=== PATIENT | male | born 1990 | race Caucasian/White ===

== ENCOUNTER 2016-11-25 14:44 | Inpatient (IN) | payer MEDICAID, OTHER ==
--- NOTE | 2016-11-25 15:46 | ED ---
General Adult HPI - General Chief complaint: Psychiatric Symptoms Stated complaint: Mental Health Time Seen by Provider: 11/25/16 15:10 Source: patient, RN notes reviewed Mode of arrival: ambulatory Limitations: no limitations - History of Present Illness Initial comments: Patient is a 26-year-old male who presents emergency room today with chief complaint psychiatric evaluation. Denies any specific suicidal ideation. Denies any homicidal thoughts or plans. Denies any visual or auditory hallucinations. He does admit that he believes he suffers from depression. He states that he has never been formally diagnosed. He states he does have a history of diabetes. His fiance at bedside states that a few days ago he talked about just leaving the house without his insulin because he did not care. Patient denies any other physical complaints. States that they have been trying follow-up with a psychiatrist. States that he had an appointment but they were told that is not excessive insurance. Since he called a few other places but received a phone call back. Patient denies any recent fever, chills, shortness of breath, chest pain, back pain, abdominal pain, nausea or vomiting, numbness or tingling, dysuria or hematuria, constipation or diarrhea, headaches or visual changes, or any other complaints. - Related Data Home Medications Medication Instructions Recorded Confirmed Insulin Aspart [NovoLOG Flexpen] See Protocol SQ 11/25/16 Insulin Glargine,Hum.rec.anlog 16 - 20 unit SQ HS 11/25/16 11/25/16 [Lantus Solostar] Allergies Allergy/AdvReac Type Severity Reaction Status Date / Time gluten AdvReac Nausea & Verified 11/25/16 15:42 Vomiting & Diarrhea Review of Systems ROS Statement: Those systems with pertinent positive or pertinent negative responses have been documented in the HPI. ROS Other: All systems not noted in ROS Statement are negative. Past Medical History Past Medical History: Diabetes Mellitus Additional Past Medical History / Comment(s): neuropathy History of Any Multi-Drug Resistant Organisms: None Reported Past Surgical History: No Surgical Hx Reported Past Psychological History: Anxiety, Depression Smoking Status: Current every day smoker Past Alcohol Use History: Rare Past Drug Use History: Marijuana General Exam - General Exam Comments Initial Comments: General: The patient is awake and alert, in no distress, and does not appear acutely ill. Eye: Pupils are equal, round and reactive to light, extra-ocular movements are intact. No nystagmus. There is normal conjunctiva bilaterally. No signs of icterus. Ears, nose, mouth and throat: There are moist mucous membranes and no oral lesions. Neck: The neck is supple, there is no tenderness or JVD. Cardiovascular: There is a regular rate and rhythm. No murmur, rub or gallop is appreciated. Respiratory: Lungs are clear to auscultation, respirations are non-labored, breath sounds are equal. No wheezes, stridor, rales, or rhonchi. Gastrointestinal: Soft, non-distended, non-tender abdomen without masses or organomegaly noted. There is no rebound or guarding present. No CVA tenderness. Bowel sounds are unremarkable. Musculoskeletal: Normal ROM, no tenderness. Strength 5/5. Sensation intact. Pulses equal bilaterally 2+. Neurological: A&O x 3. CN II-XII intact, There are no obvious motor or sensory deficits. Coordination appears grossly intact. Speech is normal. Skin: Skin is warm and dry and no rashes or lesions are noted. Psychiatric: Cooperative, appropriate mood & affect, normal judgment. Limitations: no limitations Course Vital Signs 11/25/16 14:46 Temperature 97.8 F Pulse Rate 101 H Respiratory 18 Rate Blood Pressure 117/69 O2 Sat by Pulse 98 Oximetry Medical Decision Making - Medical Decision Making Patient has been seen here in the emergency room by mental health. They recommended admission. Patient willing to sign himself in. - Lab Data Lab Results 11/25/16 11/25/16 Range/Units 16:24 17:12 POC Glucose (mg/dL) 271 H (75-99) mg/dL POC Glu Skein Winder ID Marbin Rinaldi Urine Opiates Screen Not Detected (NotDetected) Ur Oxycodone Screen Not Detected (NotDetected) Urine Methadone Screen Not Detected (NotDetected) Ur Propoxyphene Screen Not Detected (NotDetected) Ur Barbiturates Screen Not Detected (NotDetected) U Tricyclic Antidepress Not Detected (NotDetected) Ur Phencyclidine Scrn Not Detected (NotDetected) Ur Amphetamines Screen Not Detected (NotDetected) U Methamphetamines Scrn Not Detected (NotDetected) U Benzodiazepines Scrn Not Detected (NotDetected) Urine Cocaine Screen Not Detected (NotDetected) U Marijuana (THC) Screen Detected H (NotDetected) Disposition Clinical Impression: Depression, Suicidal ideation Disposition: TRANSFER TO PSYCH HOSP/UNIT
[2016-11-25 16:27] LABS: Glucose,Whole Blood 271 mg/dL (75-99)
[2016-11-25 20:12] LABS: Glucose,Whole Blood 292 mg/dL (75-99)
[2016-11-25] MEDS ORDERED: MAGNESIUM HYDROXIDE 2,400 MG/10 ML CUP PO PRN (20:25)
[2016-11-25] MEDS ORDERED: ACETAMINOPHEN TAB 325 MG TAB PO PRN (20:25)
[2016-11-25] MEDS ORDERED: MAG HYDROX/AL HYDROX/SIMETH 30 ML CUP PO PRN (20:25)
[2016-11-25] MEDS: INSULIN LISPRO (humaLOG) 300 UNIT/3 ML VIAL SQ SCH (21:24)
[2016-11-25] MEDS: INSULIN GLARGINE 100 UNIT/ML 10 ML VIAL SQ SCH (21:59)
--- NOTE | 2016-11-25 23:58 | P.MDCNMH ---
History of Present Illness H&P Date: 11/25/16 Chief Complaint: medical managment 26 year old male with PMHx of DM type I, Celiac disease and no psychiatric history patient presented voluntarily , due to feeling overwhelmed. He denies any suicidal, homicidal ideation. however he is asking for psych evaluation, as he feels overwhelming anxiety, hoplessness and helpess. He is worried of future complication of his current medical issues. He feels depressed. otherwise denies any active medical complaints. He reports that few days ago he attempted to leave the house without insulin as he does not care any more. He reports that celiac disease is a recent diagnosis , and since he stopped eating gluten , he feels more energetic and is having no more diarrheas or bloating. Review of Systems Constitutional: Patient reports no fever, no chills, no night sweating, no significant weight changes Eyes: Patient reports no visual changes, no eye pain ENT: Patient reports no ear pain, no rhinorrhea, no sore throat Cardiovascular: Patient reports no chest pain, no exertional dyspnea, no peripheral leg edema, no orthopnea, no paroxysmal nocturnal dyspnea Respiratory:Patient reports no cough, no wheezing, no shortness of breath Gastrointestinal: Patient reports no diarrhea, no constipation, no nausea no vomiting, no abdominal pain Genitourinary: Patient reports no dysuria, no hematuria, no changes in urinary habits, no genital lesions Musculoskeletal: Patient reports no muscle pain, no joint pain Endocrine: Patient reports no heat intolerance, no cold intolerance, no excessive thirst, no polyuria Neurological: Patient reports no focal neurologic deficits, no weakness, no numbness, no tingling Hem/Lymphatic: Patient reports no bleeding tendency, no bruising, no swollen lymph glands Allergic/Immun: Patient reports no recent allergic reactions Skin: Patient reports no rashes, no pruritis, no ulcers Past Medical History Past Medical History: Diabetes Mellitus Additional Past Medical History / Comment(s): neuropathy, celiac disease History of Any Multi-Drug Resistant Organisms: None Reported Past Surgical History: No Surgical Hx Reported Past Psychological History: Anxiety, Depression Smoking Status: Current every day smoker Past Alcohol Use History: Rare Past Drug Use History: Marijuana Additional History: Thyroid disease and breast cancer runs in his family Medications and Allergies Home Medications and Allergies Comment(s): reviewed Home Medications Medication Instructions Recorded Confirmed Type Insulin Aspart [NovoLOG Flexpen] See Protocol SQ ACHS 11/25/16 11/25/16 History Insulin Glargine,Hum.rec.anlog 16 - 20 unit SQ HS 11/25/16 11/25/16 History [Lantus Solostar] Allergies Allergy/AdvReac Type Severity Reaction Status Date / Time gluten AdvReac Nausea & Verified 11/25/16 15:42 Vomiting & Diarrhea Physical Exam Vitals: Vital Signs Temp Pulse Pulse Resp BP BP Pulse Ox 11/25/16 19:43 98.0 F 88 18 122/80 98 11/25/16 14:46 97.8 F 101 H 18 117/69 98 Intake and Output 11/25/16 11/25/16 11/26/16 14:59 22:59 06:59 Other: Weight 58.967 kg 59.8 kg Patient Weight 11/26/16 06:59 Weight 59.8 kg Constitutional: No acute distress, conversant, pleasant Eyes: Anicteric sclerae, moist conjunctiva, no lid-lag Pupils equal round reactive to light ENMT: NC/AT Oropharynx clear, no erythema, exudates, patient has no frontal lower teeth Neck: Supple, FROM, no masses, or JVD No carotid bruits No thyromegaly Lungs: Clear to auscultation Clear to percussion Normal respiratory effort, no accessory muscle use Cardiovascular: Heart regular in rate and rhythm, No murmurs, gallops, or rubs No peripheral edema Abdominal: Soft Nontender, no guarding, rebound or rigidity Abdomen moving with respiration Normoactive bowel sounds No hepatomegaly, No splenomegaly No palpable mass No abdominal wall hernia noted Skin: Normal temperature, tone, texture, turgor No induration No subcutaneous nodules No rash, lesions No ulcers Extremities: No digital cyanosis No clubbing Pedal pulses intact and symmetrical Radial pulses intact and symmetrical No calf tenderness Psychiatric: Alert and oriented to person, place and time Appropriate affect fair judgement Neuro Muscles Strength 5/5 in all 4 extremities Sensation to light touch grossly present throughout No focal sensory deficits Lymphatics: no palpable cervical or supraclavicular , or inguinal lymph nodes Cranial Nerve Examination - Cranial Nerves Cranial Nerve II- Optic: Intact Cranial Nerve III- Oculomotor: Intact Cranial Nerve IV- Trochlear: Intact Cranial Nerve V- Trigeminal: Intact Cranial Nerve - Abducens: Intact Cranial Nerve VII- Facial: Intact Cranial Nerve VIII- Auditory: Intact Cranial Nerve IX- Glossopharyngeal: Intact Cranial Nerve X- Vagus: Intact Cranial Nerve XI- Accessory: Intact Cranial Nerve XII- Hypoglossal: Intact Results Labs: Abnormal Lab Results - Last 24 Hours (Table) 11/25/16 11/25/16 11/25/16 Range/Units 16:24 17:12 20:10 POC Glucose (mg/dL) 271 H 292 H (75-99) mg/dL U Marijuana (THC) Screen Detected H (NotDetected) Assessment and Plan (1) Diabetes mellitus Narrative/Plan: continue with home insulin dose of lantus insulin sliding scale check A1C Status: Acute (2) Celiac disease Narrative/Plan: gluten free diet Status: Acute (3) DVT prophylaxis Narrative/Plan: low risk and ambulatory Status: Acute (4) Depression Narrative/Plan: per psych Status: Acute Plan: Thank you for allowing us to participate in the care of this patient. We will follow peripherally. Do not hesitate to contact us with questions. Someone can be reached from the [facility] hospitalist group at all hours of the day at [phone].
[2016-11-26 03:57] LABS: Glucose,Whole Blood 161 mg/dL (75-99)
[2016-11-26 06:40] LABS: Glucose,Whole Blood 140 mg/dL (75-99)
[2016-11-26] MEDS: INSULIN LISPRO (humaLOG) 300 UNIT/3 ML VIAL SQ SCH ×5 (09:08→20:35)
[2016-11-26] MEDS: NICOTINE 14MG/24HR PATCH TRANSDERM SCH (09:10)
[2016-11-26 09:29] LABS: Basophils % (A) 1 %; CH 31.8; CHCM 34.3; Eosinophils # (A) 0.1 k/uL (0-0.7); Eosinophils % (A) 2 %; HCT 48.1 % (39.0-53.0); HDW 2.46; HGB 15.7 gm/dL (13.0-17.5); Luc # (Auto) 0.19; Luc % (Auto) 4; Lymphocytes # (A) 1.4 k/uL (1.0-4.8); Lymphocytes % (A) 29 %; MCH 30.5 pg (25.0-35.0); MCHC 32.8 g/dL (31.0-37.0); Mean Platelet Volume 6.9; Monocytes # (A) 0.5 k/uL (0-1.0); Monocytes % (A) 10 %; Neutrophils # (A) 2.6 k/uL (1.3-7.7); Neutrophils % (A) 54 %; RBC 5.17 m/uL (4.30-5.90); RDW 12.1 % (11.5-15.5); WBC 4.9 k/uL (3.8-10.6); WBC (Perox) 5.21
[2016-11-26 10:00] LABS: ALT 45 U/L (21-72); AST 30 U/L (17-59); Alkaline Phosphatase 73 U/L (38-126); Anion Gap 15 mmol/L; Blood Urea Nitrogen 15 mg/dL (9-20); Calcium 9.8 mg/dL (8.4-10.2); Carbon Dioxide 26 mmol/L (22-30); Chloride 103 mmol/L (98-107); Glucose 127 mg/dL (74-99); Non-African American GFR(MDRD) >60 (>60 ml/min/1.73 sqM); Potassium 4.7 mmol/L (3.5-5.1); Sodium 144 mmol/L (137-145); Total Bilirubin 1.4 mg/dL (0.2-1.3); Total Protein 7.7 g/dL (6.3-8.2)
[2016-11-26] MEDS: ESCITALOPRAM 10 MG TAB PO SCH (10:08)
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
[2016-11-26 12:33] LABS: Glucose,Whole Blood 248 mg/dL (75-99)
[2016-11-26 12:42] LABS: Hemoglobin A1C 8.5 % (4.2-6.1)
--- NOTE | 2016-11-26 13:01 | P.PN ---
Subjective Progress Note Date: 11/26/16 Principal diagnosis: depression Patient is a 26-year-old male for history of diabetes mellitus type 1 , neuropathy, and celiac disease who is seen in the mental health unit. He is being followed for his type 1 diabetes and celiac disease. Patient seen and examined at bedside. He is not having any unusual chest pain, shortness breath, nausea, vomiting, or diarrhea. We discussed his blood sugars. He states his last hemoglobin A1c was 9 typically runs in that level. He has tried getting the insulin pump in the past but this was cost prohibitive as the start up would be $500-$600. We discussed that his kidney function, liver function, and hemoglobin were all within normal limits. Objective - Vital Signs Vital signs: Vital Signs Temp 97.3 F L 11/26/16 06:20 Pulse 80 11/26/16 06:20 Resp 14 11/26/16 06:20 BP 116/65 11/26/16 06:20 Pulse Ox 98 11/25/16 19:43 Intake & Output 11/25/16 11/26/16 11/26/16 18:59 06:59 18:59 Weight 58.967 kg 59.8 kg - Exam General: non toxic, no distress, appears at stated age Derm: no rashes, no lesions Head: atraumatic, normocephalic, symmetric Eyes: EOMI, no lid lag, anicteric sclera Cardiovascular: S1S2 reg, no murmur, positive posterior tibial pulse bilateral, Lungs: CTA bilateral, no rhonchi, no rales , no accessory muscle use Neuro: CN II-XI grossly intact, no focal neuro deficits Psych: Alert, oriented, flat affect - Labs CBC & Chem 7: 11/26/16 09:11 11/26/16 09:11 Labs: Abnormal Lab Results - Last 24 Hours (Table) 11/25/16 11/25/16 11/25/16 Range/Units 16:24 17:12 20:10 Glucose (74-99) mg/dL POC Glucose (mg/dL) 271 H 292 H (75-99) mg/dL Hemoglobin A1c (4.2-6.1) % Total Bilirubin (0.2-1.3) mg/dL U Marijuana (THC) Screen Detected H (NotDetected) 11/26/16 11/26/16 11/26/16 Range/Units 03:55 06:36 09:11 Glucose (74-99) mg/dL POC Glucose (mg/dL) 161 H 140 H (75-99) mg/dL Hemoglobin A1c 8.5 H (4.2-6.1) % Total Bilirubin (0.2-1.3) mg/dL U Marijuana (THC) Screen (NotDetected) 11/26/16 11/26/16 Range/Units 09:11 12:28 Glucose 127 H (74-99) mg/dL POC Glucose (mg/dL) 248 H (75-99) mg/dL Hemoglobin A1c (4.2-6.1) % Total Bilirubin 1.4 H (0.2-1.3) mg/dL U Marijuana (THC) Screen (NotDetected) Assessment and Plan Plan: Type 1 diabetes mellitus, suboptimally controlled -Afternoon and p.m. blood sugars appear to be slightly elevated, a.m. blood sugars are in good range -Await hemoglobin A1c -Follow blood sugars Celiac disease -Dietary consultation -folic acid and ferritin level pending Major depressive disorder -Your psych management I will remotely continue to check patient's lab results and blood sugar levels. Should testing come back abnormal we'll plan on reevaluating the patient. Thank you for allowing us to participate in the care of this patient. We will follow peripherally. Do not hesitate to contact us with questions. Someone can be reached from the [facility] hospitalist group at all hours of the day at [phone].
[2016-11-26 14:15] VITALS: BMI 17.9
[2016-11-26 15:13] LABS: Iron Saturation 25.46 (15.00-50.00)
[2016-11-26 17:28] LABS: Glucose,Whole Blood 288 mg/dL (75-99)
[2016-11-26] MEDS: INSULIN GLARGINE 100 UNIT/ML 10 ML VIAL SQ SCH (20:36)
[2016-11-26 20:43] LABS: Glucose,Whole Blood 162 mg/dL (75-99)
[2016-11-26 22:47] LABS: Glucose,Whole Blood 58 mg/dL (75-99)
[2016-11-26 23:03] LABS: Glucose,Whole Blood 66 mg/dL (75-99)
[2016-11-26 23:33] LABS: Glucose,Whole Blood 204 mg/dL (75-99)
[2016-11-27 03:31] LABS: Glucose,Whole Blood 171 mg/dL (75-99)
[2016-11-27 06:14] LABS: Glucose,Whole Blood 120 mg/dL (75-99)
[2016-11-27] MEDS ORDERED: INSULIN LISPRO (humaLOG) 300 UNIT/3 ML VIAL SQ SCH (07:30)
[2016-11-27] MEDS: INSULIN LISPRO (humaLOG) 300 UNIT/3 ML VIAL SQ SCH ×7 (07:57→21:45)
[2016-11-27] MEDS: ESCITALOPRAM 10 MG TAB PO SCH (08:13)
[2016-11-27] MEDS: NICOTINE 14MG/24HR PATCH TRANSDERM SCH (08:14)
--- NOTE | 2016-11-27 11:28 | P.PN ---
Progress Note - Text Interval history: The patient is found in the dining room he follows me to an interview room. He reports he had some difficulty sleeping last night he subsequently feels tired. He reports she's been participating in groups he's been eating. Mood continues to be depressed. He does have some hopeless thoughts but ultimately feels safe here in the hospital. He states that if he wasn't in the hospital he would continue to have plans of harming himself with his insulin. Mental status exam: The patient is a tall thin male appearing his stated age. He is dressed in his own clothing. Eye contact is appropriate speech is fluent spontaneous nonpressured. He endorses a continued depressed mood with hopelessness thinking. He reports no homicidal ideation intent or plan. He endorses no auditory or visual hallucinations or specific delusions. He does not appear hypomanic or manic. Insight and judgment limited. He remains oriented to person place and date. He demonstrates no verbal or physical aggressiveness. Plan: The patient will continue on Lexapro we will add melatonin at bedtime as he has successfully used that on an outpatient basis for sleep. He is encouraged to continue participating in the milieu. Social work is in the process of trying to arrange a support meeting. We will continue to monitor him for safety.
--- NOTE | 2016-11-27 11:57 | P.PN ---
Subjective Progress Note Date: 11/27/16 Principal diagnosis: depression Patient is a 26-year-old male for history of diabetes mellitus type 1 , neuropathy, and celiac disease who is seen in the mental health unit. He is being followed for his type 1 diabetes and celiac disease. Patient seen and examined at bedside. His blood sugar dropped to the 60s last evening. He states that is because he has been walking and his walks 10 times when he does typically in the day at work. He was symptomatic. He has never tried taking his Lantus during the day and is willing to try. He states he knows this is due to increased activity and he has not been eating as many carbs as he normally does at home. We'll continue to monitor blood sugars closely. He denies any chest pain, shortness of breath, lightheadedness, dizziness, or diaphoresis. He is very aware of what symptoms to look for for both hyper and hypoglycemia. He is a very brittle type I diabetic. Objective - Vital Signs Vital signs: Vital Signs Temp 98.8 F 11/27/16 06:12 Pulse 98 11/27/16 06:12 Resp 15 11/27/16 06:12 BP 107/66 11/27/16 06:12 Pulse Ox 98 11/25/16 19:43 Intake & Output 11/26/16 11/27/16 11/27/16 18:59 06:59 18:59 Weight 59.8 kg - Exam General: non toxic, no distress, appears at stated age Derm: no rashes, no lesions Head: atraumatic, normocephalic, symmetric Eyes: EOMI, no lid lag, anicteric sclera Cardiovascular: S1S2 reg, no murmur, positive posterior tibial pulse bilateral, Lungs: CTA bilateral, no rhonchi, no rales , no accessory muscle use Neuro: CN II-XI grossly intact, no focal neuro deficits Psych: Alert, oriented, flat affect - Labs CBC & Chem 7: 11/26/16 09:11 11/26/16 09:11 Labs: Abnormal Lab Results - Last 24 Hours (Table) 11/26/16 11/26/16 11/26/16 Range/Units 09:11 12:28 17:27 POC Glucose (mg/dL) 248 H 288 H (75-99) mg/dL Hemoglobin A1c 8.5 H (4.2-6.1) % 11/26/16 11/26/16 11/26/16 Range/Units 20:30 22:45 23:02 POC Glucose (mg/dL) 162 H 58 L 66 L (75-99) mg/dL Hemoglobin A1c (4.2-6.1) % 11/26/16 11/27/16 11/27/16 Range/Units 23:22 03:27 06:12 POC Glucose (mg/dL) 204 H 171 H 120 H (75-99) mg/dL Hemoglobin A1c (4.2-6.1) % Assessment and Plan Plan: Type 1 diabetes mellitus, suboptimally controlled -Transition Lantus to a.m. dosing and decrease from 16 units to 15 units, fixed doses of 3 units of Humalog was added with each meal in addition to sliding scale -Monitor blood sugars closely -Hemoglobin A1c 8.5 -Liberalize his diet so patient can consume the same amount of carbs he was using at home, this was a better approximation of how much insulin he truly needs. Celiac disease -Dietary recommendations appreciated -folic acid and ferritin level within normal Major depressive disorder -Your psych management Plan on reevaluating the patient's blood sugars in the morning, if there is a large variance or anything concerning will reevaluate the patient tomorrow. Thank you for allowing us to participate in the care of this patient. We will follow peripherally. Do not hesitate to contact us with questions. Someone can be reached from the [facility] hospitalist group at all hours of the day at [phone].
[2016-11-27 12:23] LABS: Glucose,Whole Blood 129 mg/dL (75-99)
[2016-11-27] MEDS: INSULIN GLARGINE 100 UNIT/ML 10 ML VIAL SQ SCH (12:59)
[2016-11-27 14:46] LABS: Glucose,Whole Blood 314 mg/dL (75-99)
[2016-11-27] MEDS ORDERED: INSULIN LISPRO (humaLOG) 300 UNIT/3 ML VIAL SQ ONE (14:49)
[2016-11-27 17:19] LABS: Glucose,Whole Blood 225 mg/dL (75-99)
[2016-11-27 20:05] LABS: Glucose,Whole Blood 101 mg/dL (75-99)
[2016-11-27] MEDS: MELATONIN 3 MG TABLET PO SCH (22:41)
[2016-11-27 22:46] LABS: Glucose,Whole Blood 86 mg/dL (75-99)
[2016-11-28 03:10] LABS: Glucose,Whole Blood 100 mg/dL (75-99)
[2016-11-28 06:41] LABS: Glucose,Whole Blood 108 mg/dL (75-99)
[2016-11-28 08:08] LABS: Glucose,Whole Blood 89 mg/dL (75-99)
[2016-11-28] MEDS: INSULIN LISPRO (humaLOG) 300 UNIT/3 ML VIAL SQ SCH ×7 (08:58→20:48)
[2016-11-28] MEDS: INSULIN GLARGINE 100 UNIT/ML 10 ML VIAL SQ SCH (08:59)
[2016-11-28] MEDS: ESCITALOPRAM 10 MG TAB PO SCH (08:59)
[2016-11-28] MEDS: NICOTINE 14MG/24HR PATCH TRANSDERM SCH ×2 (09:00→09:02)
--- NOTE | 2016-11-28 10:56 | P.PN ---
Progress Note - Text Interval history: The patient is found in his room he follows me to an interview room. He is reporting no side effects from the Lexapro. He reports having some disturbed sleep last evening. He has been attending groups. He reports that his mood is just starting to stabilize. Social work has been trying to coordinate a support meeting involving his . He states once he is discharged she is hoping to participate in individual counseling or group activity. We discussed partial hospitalization as an option. He does hope to gain employment again but feels his diabetes has been an obstacle. He continues to describe his marriage as being very supportive. Mental status exam: The patient is a thin male he is dressed in his own clothing hygiene grooming adequate. Speech is fluent and spontaneous nonpressured. He is reporting his mood is just starting to improve. He is reporting no homicidal ideation intent or plan. Affect is constricted. He is reporting no auditory or visual hallucinations or specific delusions. He does not appear hypomanic or manic. Insight and judgment meaning to improve. He demonstrates no verbal or physical aggressiveness. Plan: The patient will be continued on his current psychotropic medications. We will monitor him for safety. Social work is attempting to arrange a support meeting. If he demonstrates sufficient improvement over the weekend we will consider discharge Thursday. Internal medicine is managing treatment regarding his insulin area
--- NOTE | 2016-11-28 12:21 | P.PN ---
Subjective Progress Note Date: 11/28/16 Principal diagnosis: depression Patient is a 26-year-old male for history of diabetes mellitus type 1 , neuropathy, and celiac disease who is seen in the mental health unit. He is being followed for his type 1 diabetes and celiac disease. On 11/27 he moved his Lantus dose in the morning which seemed to help. He did have some elevated blood sugars as his lunchtime fixed dose of insulin was held. Patient seen and examined at bedside. Patient is feeling well today, he requests an increase in his fixed dose Humalog if he is eating more. He states that he is eating closely at home. We have discussed there is not a carb counting insulin sliding scale available in the mental health unit. He understands that should he want a different dose of insulin he should let the nurse know if they could call us 24 hours a day and he is going dose can be changed and monitored. We also discussed whether or not we should move his Lantus back to nighttime. We both agreed that since there is no large nighttime snack and he has a larger gap between dinner and breakfast and he does not home that we should not his Lantus back to nighttime. I reassured him that I will continue to follow his blood sugars daily and we will discuss his insulin regimen together and make further changes. Objective - Vital Signs Vital signs: Vital Signs Temp 97.8 F 11/28/16 06:13 Pulse 79 11/28/16 06:13 Resp 16 11/28/16 06:13 BP 98/56 11/28/16 06:13 Pulse Ox 98 11/25/16 19:43 - Exam General: non toxic, no distress, appears at stated age Derm: no rashes, no lesions Head: atraumatic, normocephalic, symmetric Eyes: EOMI, no lid lag, anicteric sclera Cardiovascular: S1S2 reg, no murmur, positive posterior tibial pulse bilateral, Lungs: CTA bilateral, no rhonchi, no rales , no accessory muscle use Neuro: CN II-XI grossly intact, no focal neuro deficits Psych: Alert, oriented, flat affect - Labs CBC & Chem 7: 11/26/16 09:11 11/26/16 09:11 Labs: Abnormal Lab Results - Last 24 Hours (Table) 11/27/16 11/27/16 11/27/16 Range/Units 12:21 14:42 17:07 POC Glucose (mg/dL) 129 H 314 H 225 H (75-99) mg/dL 11/27/16 11/28/16 11/28/16 Range/Units 20:03 03:07 06:27 POC Glucose (mg/dL) 101 H 100 H 108 H (75-99) mg/dL Assessment and Plan Plan: Type 1 diabetes mellitus, suboptimally controlled -10 units Lantus 15 units in the morning, continue with Humalog sliding scale and increase Humalog to 5 units with all meals. -Monitor blood sugars closely -Hemoglobin A1c 8.5 Celiac disease -Dietary recommendations appreciated -folic acid and ferritin level within normal Major depressive disorder -Your psych management Plan on reevaluating the patient daily and making adjustments to his insulin regimen. Thank you for allowing us to participate in the care of this patient. We will follow peripherally. Do not hesitate to contact us with questions. Someone can be reached from the [facility] hospitalist group at all hours of the day at [phone].
[2016-11-28 12:57] LABS: Glucose,Whole Blood 269 mg/dL (75-99)
[2016-11-28 16:46] LABS: Glucose,Whole Blood 55 mg/dL (75-99)
[2016-11-28 17:05] LABS: Glucose,Whole Blood 57 mg/dL (75-99)
[2016-11-28 17:29] LABS: Glucose,Whole Blood 99 mg/dL (75-99)
[2016-11-28] MEDS ORDERED: INSULIN LISPRO (humaLOG) 300 UNIT/3 ML VIAL SQ ONE (18:13)
[2016-11-28 20:22] LABS: Glucose,Whole Blood 132 mg/dL (75-99)
[2016-11-28] MEDS: MELATONIN 3 MG TABLET PO SCH (22:06)
[2016-11-28 22:24] LABS: Glucose,Whole Blood 160 mg/dL (75-99)
[2016-11-29 06:50] LABS: Glucose,Whole Blood 284 mg/dL (75-99)
[2016-11-29] MEDS: ESCITALOPRAM 10 MG TAB PO SCH (08:30)
[2016-11-29] MEDS: NICOTINE 14MG/24HR PATCH TRANSDERM SCH ×2 (08:30→15:33)
[2016-11-29] MEDS: INSULIN GLARGINE 100 UNIT/ML 10 ML VIAL SQ SCH (08:30)
[2016-11-29] MEDS: INSULIN LISPRO (humaLOG) 300 UNIT/3 ML VIAL SQ SCH ×8 (08:32→22:07)
[2016-11-29 12:34] LABS: Glucose,Whole Blood 289 mg/dL (75-99)
--- NOTE | 2016-11-29 14:14 | P.PN ---
Subjective Progress Note Date: 11/29/16 Principal diagnosis: depression Patient is a 26-year-old male for history of diabetes mellitus type 1 , neuropathy, and celiac disease who is seen in the mental health unit. He is being followed for his type 1 diabetes and celiac disease. currently struggeling with both hypo and hyperglycemia Patient seen and examined at bedside. Feeling very tired today. States he is not sleeping well. States that he is not pacing of months as he has other things to consume his time. We discussed his insulin dose at [place] and he would like to be flipped back to nighttime Lantus. We will do this tomorrow in anticipation for discharge home on Thursday by psychiatry. We have discussed that we'll give him a small dose of Lantus in the morning and then the majority of his dose at night. He is in agreement. We have been working together on how much insulin he wants to take with each meal based on carb counting and have adjusted appropriately. His blood sugar was slightly high again today at lunch and he believes he did not take enough insulin this morning. Objective - Vital Signs Vital signs: Vital Signs Temp 98.2 F 11/29/16 06:37 Pulse 74 11/29/16 06:37 Resp 18 11/29/16 06:37 BP 116/62 11/29/16 06:37 Pulse Ox 98 11/25/16 19:43 - Exam General: non toxic, no distress, appears at stated age Derm: no rashes, no lesions Head: atraumatic, normocephalic, symmetric Eyes: EOMI, no lid lag, anicteric sclera Cardiovascular: S1S2 reg, no murmur, positive posterior tibial pulse bilateral, Lungs: CTA bilateral, no rhonchi, no rales , no accessory muscle use Neuro: CN II-XI grossly intact, no focal neuro deficits Psych: Alert, oriented, appropriate affect - Labs CBC & Chem 7: 11/26/16 09:11 11/26/16 09:11 Labs: Abnormal Lab Results - Last 24 Hours (Table) 11/28/16 11/28/16 11/28/16 Range/Units 16:44 17:04 20:20 POC Glucose (mg/dL) 55 L 57 L 132 H (75-99) mg/dL 11/28/16 11/29/16 11/29/16 Range/Units 22:22 06:48 12:31 POC Glucose (mg/dL) 160 H 284 H 289 H (75-99) mg/dL Assessment and Plan Plan: Type 1 diabetes mellitus, suboptimally controlled -I'll change him back to nighttime insulin starting tomorrow as he anticipates going home on Thursday. Tomorrow I will gve him Lantus 4 units in the morning followed by 12 units at night for a total of 16 units. He is in agreement, will continue to work with patient 2 adjust his insulin with meal secondary to carb counting. -Monitor blood sugars closely -Hemoglobin A1c 8.5 - working with endocrinology as outpatient towards insulin pump Celiac disease -Dietary recommendations appreciated -folic acid and ferritin level within normal Major depressive disorder -Your psych management Plan on reevaluating the patient daily and making adjustments to his insulin regimen. Thank you for allowing us to participate in the care of this patient. We will follow peripherally. Do not hesitate to contact us with questions. Someone can be reached from the [facility] hospitalist group at all hours of the day at [phone].
--- NOTE | 2016-11-29 15:50 | P.PN ---
Progress Note - Text Progress Note Date: 11/29/16 Interval history: Patient is seen in cross coverage today for Dr. Sharif. He seems to be tolerating the Lexapro well. His mood overall seems to be improved. He reports that he has resolved any suicidal ideations. He had a family meeting today. He does state that his sleep has been kind of interrupted. Mental status exam: He is alert and cooperative with the interview. His speech is fluent, not rapid or pressured. His mood overall seems to be improved. He relates that he is resolved any suicidal ideations. He denies any thoughts of harm to others. No evidence of psychosis or agitation. Plan: Patient will be maintained on current psychotropic medication regimen. We will continue to monitor for any medication side effects and for his ongoing response. We'll continue to cover this patient for Dr. Sharif through the weekend.
[2016-11-29 16:43] LABS: Glucose,Whole Blood 61 mg/dL (75-99)
[2016-11-29 16:43] LABS: Glucose,Whole Blood 51 mg/dL (75-99)
[2016-11-29 17:30] LABS: Appearance,Urine Clear (Clear); Bilirubin,Urine Negative (Negative); Glucose,Urine (UA) 3+ (Negative); Ketones,Urine Negative (Negative); Leukocyte Esterase,Urine Negative (Negative); Nitrite,Urine Negative (Negative); Protein,Urine Negative (Negative); Specific Gravity,Urine 1.008 (1.001-1.035); UA Billing (MACRO vs. MICRO) CHEM; Urobilinogen,Urine <2.0 mg/dL (<2.0)
[2016-11-29 20:07] LABS: Glucose,Whole Blood 197 mg/dL (75-99)
[2016-11-29] MEDS: MELATONIN 3 MG TABLET PO SCH (20:23)
[2016-11-29] MEDS ORDERED: INSULIN GLARGINE 100 UNIT/ML 10 ML VIAL SQ SCH (21:00)
[2016-11-29 21:48] LABS: Glucose,Whole Blood 218 mg/dL (75-99)
[2016-11-30 06:09] LABS: Glucose,Whole Blood 308 mg/dL (75-99)
[2016-11-30 06:18] VITALS: RESP 16
[2016-11-30] MEDS: INSULIN LISPRO (humaLOG) 300 UNIT/3 ML VIAL SQ SCH ×7 (07:35→20:42)
[2016-11-30] MEDS: ESCITALOPRAM 10 MG TAB PO SCH (09:07)
[2016-11-30] MEDS: NICOTINE 14MG/24HR PATCH TRANSDERM SCH (09:07)
[2016-11-30] MEDS: INSULIN GLARGINE 100 UNIT/ML 10 ML VIAL SQ SCH ×2 (09:08→09:33)
[2016-11-30 11:41] LABS: Glucose,Whole Blood 284 mg/dL (75-99)
[2016-11-30 12:58] LABS: Glucose,Whole Blood 270 mg/dL (75-99)
--- NOTE | 2016-11-30 15:00 | P.PN ---
Subjective Progress Note Date: 11/30/16 (Late entry patient seen at 12:45 PM) Principal diagnosis: depression Patient is a 26-year-old male for history of diabetes mellitus type 1 , neuropathy, and celiac disease who is seen in the mental health unit. He is being followed for his type 1 diabetes and celiac disease. currently struggeling with both hypo and hyperglycemia Patient seen and examined at bedside. Frustrated because sugars are high today and they were low yesterday. We went over how many carbs on his lunch tray, and his current blood sugar of 270. We reviewed his blood sugars together since admission. He will have 7 units of insulin with lunch and then we'll recheck the sugar 2 hours later and repeat dose. He denies any chest pain or shortness of breath. We both feel that once he has normal access to food and is on his normal environment sugars will stabilize again. Attempted to call his morning and twice this morning and left a message. I 'll retry today around 5:30. Objective - Vital Signs Vital signs: Vital Signs Temp 97.9 F 11/30/16 06:17 Pulse 89 11/30/16 06:17 Resp 16 11/30/16 06:17 BP 111/67 11/30/16 06:17 Pulse Ox 98 11/25/16 19:43 Intake & Output 11/29/16 11/30/16 11/30/16 18:59 06:59 18:59 Weight 62.1 kg - Exam General: non toxic, no distress, appears at stated age Derm: no rashes, no lesions Head: atraumatic, normocephalic, symmetric Eyes: EOMI, no lid lag, anicteric sclera Cardiovascular: S1S2 reg, no murmur, positive posterior tibial pulse bilateral, Lungs: CTA bilateral, no rhonchi, no rales , no accessory muscle use Neuro: CN II-XI grossly intact, no focal neuro deficits Psych: Alert, oriented, appropriate affect - Labs CBC & Chem 7: 11/26/16 09:11 11/26/16 09:11 Labs: Abnormal Lab Results - Last 24 Hours (Table) 11/29/16 11/29/16 11/29/16 Range/Units 16:06 16:27 17:05 POC Glucose (mg/dL) 51 L 61 L (75-99) mg/dL Urine Glucose (UA) 3+ H (Negative) 11/29/16 11/29/16 11/30/16 Range/Units 20:05 21:46 06:08 POC Glucose (mg/dL) 197 H 218 H 308 H (75-99) mg/dL Urine Glucose (UA) (Negative) 11/30/16 11/30/16 Range/Units 11:29 12:55 POC Glucose (mg/dL) 284 H 270 H (75-99) mg/dL Urine Glucose (UA) (Negative) Assessment and Plan Plan: Type 1 diabetes mellitus, suboptimally controlled -I'll change him back to nighttime insulin starting today as he anticipates going home on Thursday. getting Lantus 4 units in the morning followed by 12 units at night for a total of 16 units. He is in agreement, will continue to work with patient 2 adjust his insulin with meals secondary to carb counting. -Monitor blood sugars closely -Hemoglobin A1c 8.5 - working with endocrinology as outpatient towards insulin pump Celiac disease -Dietary recommendations appreciated -folic acid and ferritin level within normal Major depressive disorder -Your psych management Plan on reevaluating the patient daily and making adjustments to his insulin regimen. Thank you for allowing us to participate in the care of this patient. We will follow peripherally. Do not hesitate to contact us with questions. Someone can be reached from the [facility] hospitalist group at all hours of the day at [phone].
[2016-11-30 15:20] LABS: Glucose,Whole Blood 232 mg/dL (75-99)
[2016-11-30] MEDS ORDERED: INSULIN LISPRO (humaLOG) 300 UNIT/3 ML VIAL SQ ONE (15:45)
[2016-11-30 17:40] LABS: Glucose,Whole Blood 89 mg/dL (75-99)
--- NOTE | 2016-11-30 19:23 | P.PN ---
Progress Note - Text Progress Note Date: 11/30/16 Interval history: [place] is [place] [facility] [place] Dr. Sharif. He reports that he does feel like he is to the point where he is ready for discharge tomorrow. He does describe some frustration regarding the care for his diabetes. His last blood sugar reading was 89. He does talk about issues regarding a return to work, he discusses a return to work regarding of this coming week. He does not seem to voice any adverse side effects with the Lexapro. Mental status exam: He is alert and cooperative with the interview. His speech is fluent, not rapid or pressured. Thought processes organized. He denies any thoughts of harm to self or others. He does not show any active evidence of psychosis. Plan: Maintain current psychotropic medication regimen. Dr. Sharif to resume care this patient starting tomorrow. Would look for discharge planning as early as tomorrow.
[2016-11-30 20:20] LABS: Glucose,Whole Blood 144 mg/dL (75-99)
[2016-11-30] MEDS: MELATONIN 3 MG TABLET PO SCH (20:45)
[2016-11-30] MEDS ORDERED: INSULIN GLARGINE 100 UNIT/ML 10 ML VIAL SQ SCH (21:00)
[2016-12-01 02:14] LABS: Glucose,Whole Blood 163 mg/dL (75-99)
[2016-12-01 06:54] LABS: Glucose,Whole Blood 239 mg/dL (75-99)
[2016-12-01 06:56] VITALS: BP 125/75; PULSE 78; TEMP 97.8
[2016-12-01] MEDS: NICOTINE 14MG/24HR PATCH TRANSDERM SCH (08:11)
[2016-12-01] MEDS: ESCITALOPRAM 10 MG TAB PO SCH (08:14)
[2016-12-01] MEDS: INSULIN LISPRO (humaLOG) 300 UNIT/3 ML VIAL SQ SCH ×4 (08:14→13:38)
[2016-12-01] MEDS: INSULIN GLARGINE 100 UNIT/ML 10 ML VIAL SQ SCH (08:22)
[2016-12-01] MEDS ORDERED: NICOTINE POLACRILEX 2 MG GUM BUCCAL PRN (09:34)
--- NOTE | 2016-12-01 09:48 | P.DS ---
Providers Date of admission: 11/25/16 19:16 Expected date of discharge: 12/01/16 Attending physician: Eliu Sharif Consults: 11/25/16 20:25 Consult Physician Routine Consulting Provider: Felice Crane Consult Reason/Comments: H and P Do you want consulting provider notified?: Yes Primary care physician: Gerard Duarte - Discharge Diagnosis(es) (1) Major depressive disorder, recurrent severe without psychotic features Current Visit: Yes Status: Acute Priority: High Hospital Course: Brief summary of admission note: This patient is a 18-year-old male who was admitted to the mental health unit through the emergency room for suicidal ideation. The patient had verbalized a plan of going off of his insulin or overdosing on insulin. He reports she's been depressed for years but his symptoms have worsened over the last week. This seemed to be precipitated by the recent termination of to friendships. The patient reportedly been tearful on a daily basis, sleep had been poor, appetite decreased with noted weight loss. He described having low energy and anhedonia. For full details please refer to my psychiatric evaluation dated 12/2016. Summary of hospital course: The patient was admitted to the mental health unit he signed in voluntarily. We reviewed his presenting symptoms and medication options. We decided to initiate Lexapro 10 mg daily. We discussed potential benefits and side effects of Lexapro and his questions were answered. The patient was also utilizing melatonin in the evening for sleep. The patient was seen by the internal medicine physician for routine history and physical exam and the patient's blood sugar control was addressed. The patient attended groups he demonstrated no agitated behavior. He reported a progressive improvement of symptoms while here. He did participate in a support meeting involving his facilitated by social work. We discussed the option of having him participate in a partial program upon discharge but he feels that is not necessary. Mental status exam: The patient is a tall thin male appearing his stated age. He is dressed in his own clothing eye contact is appropriate speech is fluent spontaneous nonpressured. He reports his mood is much improved affect is euthymic. He reports no hopelessness thinking he reports having no suicidal ideation intent or plan no homicidal ideation intent or plan. He endorses no auditory or visual hallucinations or specific delusions. There is no observable evidence of psychosis. He does not appear hypomanic or manic. He demonstrates no verbal or physical aggressiveness. He remains oriented to person place and date. Impressions 1. Major depressive disorder recurrent severe without psychosis, rule out cannabis use disorder, rule out social anxiety disorder 2. Type 1 diabetes, celiac disease 3. Recent termination of to friendships Plan: The patient will be discharged mental health unit today to return home. He will continue on Lexapro 10 mg daily. He may continue using melatonin over- the-counter for sleep as needed. His outpatient mental health follow-up will be arranged by social work. The patient is encouraged not to use alcohol or marijuana or any other illicit drug. He is instructed to return to the hospital if any acute safety concerns. He will continue following up with his primary care physician regarding control of his diabetes and management of his celiac disease. Patient Condition at Discharge: Stable Plan - Discharge Summary New Discharge Prescriptions: New Escitalopram [Lexapro] 10 mg PO DAILY #30 tab Melatonin 3 mg PO HS tab Nicotine Polacrilex [Nicorette] 2 mg BUCCAL Q2HR PRN #60 pieceofgum PRN Reason: Nicotine Cravings Continue Insulin Glargine,Hum.rec.anlog [Lantus Solostar] 16 - 20 unit SQ HS Insulin Aspart [NovoLOG Flexpen] See Protocol SQ ACHS Discharge Medication List Insulin Aspart [NovoLOG Flexpen] See Protocol SQ ACHS 11/25/16 [History] Insulin Glargine,Hum.rec.anlog [Lantus Solostar] 16 - 20 unit SQ HS 11/25/16 [ History] Escitalopram [Lexapro] 10 mg PO DAILY #30 tab 12/01/16 [Rx] Melatonin 3 mg PO HS tab 12/01/16 [Rx] Nicotine Polacrilex [Nicorette] 2 mg BUCCAL Q2HR PRN #60 pieceofgum 12/01/16 [Rx ] Follow up Appointment(s)/Referral(s): Gerard Duarte DO [Primary Care Provider] - 1-2 days Katerin Donato MD [STAFF PHYSICIAN] - 1 Week (brittle diabetes type 1, consider insulin pump as patient interested in carb counting) Patient Instructions/Handouts: How to Check Your Blood Sugar (GEN), Foot Care for People with Diabetes (GEN), Type 1 Diabetes in Adults (GEN), Hypoglycemia in a Person with Diabetes (GEN), Basic Carbohydrate Counting (GEN) Discharge/Stand Alone Forms: Work/Release Restrictions Form
[2016-12-01 12:53] LABS: Glucose,Whole Blood 139 mg/dL (75-99)
[2016-12-01] MEDS ORDERED: INSULIN LISPRO (humaLOG) 300 UNIT/3 ML VIAL SQ ONE (13:38)
[2016-12-01] MEDS ORDERED: INSULIN GLARGINE 100 UNIT/ML 10 ML VIAL SQ SCH (21:00)
== END 2016-12-01 14:12 | disposition home or self-care (01) | DRG 885 ==
LOC: EC 14:44 → EEVIPCON 14:44 → 3MHU 19:16
PROVIDERS: ADMIT Psychiatry & Neurology Psychiatry; ATTEND Psychiatry & Neurology Psychiatry
DX: F33.2 Major depressive disorder, recurrent severe without psychotic features (principal); E10.40 Type 1 diabetes mellitus with diabetic neuropathy, unspecified; R45.851 Suicidal ideations; E10.65 Type 1 diabetes mellitus with hyperglycemia; F17.200 Nicotine dependence, unspecified, uncomplicated; K90.0 Celiac disease; Z79.4 Long term (current) use of insulin; Z79.899 Other long term (current) drug therapy
CPT/HCPCS: 36415; 80053; 80306; 81003; 82075; 82607; 82728; 82747; 83036; 83540; 83550; 84443; 85025; 99285